=== PATIENT | female | born 1975 | race Two or more races ===

== ENCOUNTER 2019-04-02 01:10 | Emergency (ER) | payer MEDICARE, OTHER ==
[~2019-04-02] VITALS: Ht 177.8 cm; Wt 70.3 kg
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
[2019-04-02] MEDS ORDERED: IBUPROFEN 600 MG TABLET PO ONE ×2 (01:38→02:00)
[2019-04-02 01:47] LABS: BASOPHILS # (AUTO) 0.2 /CMM (0.0-0.2); EOSINOPHILS % (AUTO) 1.9 % (0.0-6.0); HEMATOCRIT 36 % (33-45); HEMOGLOBIN 11.9 g/dL (11.5-14.8); LYMPHOCYTES # (AUTO) 1.2 /CMM (0.8-4.8); LYMPHOCYTES % (AUTO) 24.7 % (20.0-44.0); MEAN CORPUSCULAR HGB CONC 33 g/dl (31.0-36.0); MEAN CORPUSCULAR VOLUME 94 fL (82-100); MONOCYTES # (AUTO) 0.3 /CMM (0.1-1.30); MONOCYTES % (AUTO) 6.4 % (2.0-12.0); NEUTROPHILS # (AUTO) 3.1 /CMM (1.8-8.9); PLATELET COUNT (AUTO) 248 /CMM (150-450); RED BLOOD CELL COUNT(AUTO) 3.87 MIL/uL (4.0-5.2); WHITE BLOOD COUNT (AUTO) 4.9 K/uL (4.3-11.0)
[2019-04-02 01:54] LABS: CREATININE 0.6 mg/dL (0.6-1.3); POTASSIUM 4.1 mmol/L (3.5-5.1)
[2019-04-02 02:00] LABS: ALBUMIN 4.1 g/dL (3.4-5.0); BILIRUBIN,DIRECT 0.1 mg/dL (0.0-0.2); BILIRUBIN,TOTAL 0.1 mg/dL (0.2-1.0); SALICYLATE 2.2 mg/dL (2.8-20.0); TOTAL PROTEIN, SERUM 8.2 g/dL (6.4-8.2)
--- NOTE | 2019-04-02 02:00 | NUR ---
URINE COLLECTED AND SENT TO LAB.
[2019-04-02 02:11] LABS: APPEARANCE,URINE CLEAR (CLEAR); BILIRUBIN,URINE NEGATIVE (NEGATIVE); BLOOD, URINE NEGATIVE Ery/uL (NEGATIVE); COLOR,URINE YELLOW (YELLOW); KETONES,URINE NEGATIVE (NEGATIVE); LEUKOCYTE ESTERASE ,URINE NEGATIVE (NEGATIVE); NITRITE, URINE NEGATIVE (NEGATIVE); PROTEIN,URINE NEGATIVE (NEGATIVE); UGLUCOSE NEGATIVE (NEGATIVE); UROBILINOGEN,URINE 0.2 EU/dL (0.2)
--- NOTE | 2019-04-02 02:27 | NUR ---
CALLED SECURITY TO SCREEN PT FOR METALS.
--- NOTE | 2019-04-02 02:30 | NUR ---
Angelita singh in EDM - 04/02/19 at 0242 by ASHUTOSHOR Patient is resting comfortably in bed with eyes closed. Easily aroused. VSS.
--- NOTE | 2019-04-02 02:31 | NUR ---
PT CLEARED BY SECURITY FOR HAVING ANY METALS.
--- NOTE | 2019-04-02 02:42 | NUR ---
Patient is resting comfortably in bed with eyes closed. Easily aroused. VSS.
--- NOTE | 2019-04-02 03:21 | NUR ---
PT MEDICALLY CLEARED, CLINICAL INFORMATION FAXED TO [employer] [facility]
--- NOTE | 2019-04-02 04:00 | NUR ---
PER [facility], NO INSURANCE ON PATIENT AND CANNOT BE ACCEPTED
--- NOTE | 2019-04-02 04:45 | NUR ---
Patient is resting comfortably in bed with eyes closed. Easily aroused. VSS.
--- NOTE | 2019-04-02 05:29 | NUR ---
Patient is resting comfortably in bed with eyes closed. Easily aroused. VSS.
--- NOTE | 2019-04-02 06:20 | NUR ---
CALLED ART, PRODUCTION HELPER FOR EVALAUTION
--- NOTE | 2019-04-02 06:55 | NUR ---
FAXED INSURANCE INFORMATION TO [employer] [facility]
--- NOTE | 2019-04-02 08:30 | NUR ---
Social service consult requested by Dr. Bingham for suicidal ideations. Pt. is a 44 year old female who came to [facility] with complaints of suicidal ideation. Pt. states "I don't want to live anymore". She also complained of a headache. SARI met with the pt. bedside. Pt. is alert and oriented x 4. Pt. appears dirty and disheveled. Pt. states she is feeling suicidal and homicidal and is seeking voluntary psychiatric hospitalization. Pt. states she was released from [facility] unit yesterday. She had been there since March 26. Pt. has a psychiatric diagnosis of Bipolar Disorder, PTSD and Schizoaffective Disorder. Pt. denies drug use but drinks alcohol (beer) daily. Pt. receives $1000/month in SSDI. SARI contacted Ozzy at [facility] who informed they will hold a bed for the pt. Ozzy informed SW, intake did not receive any clinicals. SARI faxed clinicals to .
--- NOTE | 2019-04-02 08:43 | NUR ---
FAXED NIYAH REPORT TO [facility]ANCH[facility] CAICEDO [phone]
--- NOTE | 2019-04-02 08:46 | NUR ---
PT IS RESTING COMFORTABLE W/ EYES CLOSED. EASILY AROUSED. VSS
--- NOTE | 2019-04-02 08:47 | NUR ---
NURSE TO NURSE REPORT [phone] LEARNY IF VM CALL SUPERVISOR RESIDENTIAL [phone] ROOM NUMBER? ACCEPTING MD HUFFMAN & DR. WOOD.
[2019-04-02 08:48] VITALS: BP 131/92
--- NOTE | 2019-04-02 08:59 | NUR ---
REPORT GIVEN TO AUTUNM AT [facility]. PENDING TRANSFER.
--- NOTE | 2019-04-02 09:32 | NUR ---
BREAKFAST TRAY PROVIDED, PATIENT TOLERATING PO WELL
--- NOTE | 2019-04-02 09:48 | NUR ---
CALLED [facility] [phone] NEED AUTH FOR MEDICARE? INSTRUCTED TO CALL THE CAR... [facility] [phone] ONE TO THREE HOURS ETA. WILL LET US KNOW WHEN AVAILABLE.
--- NOTE | 2019-04-02 11:50 | NUR ---
REPORT GIVEN TO [facility]SP[facility] FOR [facility]
--- NOTE | 2019-04-02 13:32 | NUR ---
PT IS AGITATED. STATES WILL NO LONGER WANTS TO BE TRANSFER. LEFT AGAINTS MEDICAL ADVISED. REFUSED TO SIGN AMA. LEFT ED, STEADY GAIT.
== END 2019-04-02 13:36 | disposition left against medical advice (07) ==
LOC: ER 01:10
DX: R45.851 Suicidal ideations (principal); F10.129 Alcohol abuse with intoxication, unspecified; G43.909 Migraine, unspecified, not intractable, without status migrainosus; Y90.0 Blood alcohol level of less than 20 mg/100 ml; Z88.0 Allergy status to penicillin
CPT/HCPCS: 36415; 80048; 80076; 80305; 80307 ×2; 80329; 81001; 84703; 85025; 99284; G0480; 81000-TC